=== PATIENT | female | born 1975 | race American Indian/Alaskan Native ===

== ENCOUNTER 2016-12-21 15:30 | Emergency (ER) | payer OTHER ==
[2016-12-21 16:31] LABS: Bilirubin,Urine NEG (Negative); Blood,Urine NEG (Negative); Ketones,Urine NEG (Negative); Leukocyte Esterase,Urine NEG (Negative); Mucus,Urine FEW /HPF; Nitrite,Urine NEG (Negative); Protein,Urine <15 mg/dL mg/dL (Negative); Urobilinogen,Urine < 2.0 mg/dL (<2.0); WBC,Urine < 1.0 /HPF (0.0-6.0)
--- NOTE | 2016-12-21 19:43 | Emergency Department Report ---
HPI - General Chief Complaint: Back Pain/Injury Time Seen by Provider: 12/21/16 19:28 - HPI HPI: Patient is a 41-year-old female presents to ED complaining of right-sided flank pain for the past week. Patient states she did not have any recent injuries or trauma to the back. She states pain is constant and in her right lower area does some tenderness in her abdomen she admits to urinary frequency but no dysuria, fever, nausea, vomiting or any other problems. She states she takes no medications and is allergic to Motrin ED Past Medical Hx - Past Medical History Previous Medical History?: No Additional medical history: bact. meningitis - Surgical History Past Surgical History?: Yes Additional Surgical History: laporoscopy - Social History Smoking Status: Never Smoker Substance Use Type: None - Medications Home Medications: Home Medications Medication Instructions Recorded Confirmed Last Taken Type HYDROcodone/APAP 5-325 [[place] 1 each PO Q6HR PRN #20 tablet 12/21/16 Unknown Rx 5/325] Naproxen [Naprosyn] 500 mg PO BID #30 tablet 12/21/16 Unknown Rx diphenhydrAMINE [Benadryl CAP] 25 mg PO QHS PRN #20 capsule 12/21/16 Unknown Rx ED Review of Systems ROS: Stated complaint: RT SIDE BACK PAIN X 1 WK Other details as noted in HPI Constitutional: denies: chills, fever Eyes: denies: eye pain, eye discharge, vision change ENT: denies: ear pain, throat pain Respiratory: denies: cough, shortness of breath, wheezing Cardiovascular: denies: chest pain, palpitations Endocrine: no symptoms reported Gastrointestinal: denies: abdominal pain, nausea, diarrhea Genitourinary: denies: urgency, dysuria, discharge Musculoskeletal: denies: back pain, joint swelling, arthralgia Skin: denies: rash, lesions Neurological: denies: headache, weakness, paresthesias Psychiatric: denies: anxiety, depression Hematological/Lymphatic: denies: easy bleeding, easy bruising Physical Exam - Physical Exam Vital Signs: Vital Signs 12/21/16 15:41 Temperature 98.5 F Pulse Rate 81 Respiratory 18 Rate Blood Pressure 127/84 O2 Sat by Pulse 98 Oximetry Physical Exam: GENERAL: Alert and oriented x3, no apparent distress, Normal Gait, atraumatic. HEAD: Head is normocephalic and a-traumatic. EYES: Extra ocular muscles are intact. Pupils are equal, round, and reactive to light and accommodation. LUNGS: Symetrical with respiration, No wheezing, no rales or crackles, CTAB. HEART: S1, S2 present, regular rate and rhythm without murmur, no rubs, no gallops. Non tender to palpation ABDOMEN: No organomegaly was noted,Positive bowel sounds, soft, and non- distended. . Nontender to palpation on all Quadrants, right sided CVA tenderness. EXTREMITIES/MUSCULOSKELETAL: No cyanosis, clubbing, rash, lesions or edema. Full ROM bilaterally. UE/LE Pulses 2+ bilaterally. LE and UE 5+ strength bilaterally, straight leg raise negative bilaterally NEUROLOGIC: The patient is cooperative with no focal neurologic deficits. Cranial nerves II through XII are grossly intact. Normal speech. PSYCHIATRIC: Mood is congruent with affect, denies suicidal or homicidal ideations. SKIN: Warm and dry, No lesions, No ulceration or induration present. ED Course Vital Signs 12/21/16 15:41 Temperature 98.5 F Pulse Rate 81 Respiratory 18 Rate Blood Pressure 127/84 O2 Sat by Pulse 98 Oximetry ED Medical Decision Making - Lab Data Result diagrams: 12/21/16 20:27 12/21/16 20:27 Laboratory Results - last 24 hr 12/21/16 12/21/16 12/21/16 16:04 20:27 20:27 WBC 8.7 RBC 3.77 Hgb 11.2 Hct 34.3 MCV 91 MCH 30 MCHC 33 RDW 14.3 Plt Count 224 Lymph % (Auto) 25.6 Greer % (Auto) 12.4 H Eos % (Auto) 1.3 Baso % (Auto) 0.3 Lymph # 2.2 Greer # 1.1 H Eos # 0.1 Baso # 0.0 Seg Neutrophils % 60.4 Seg Neutrophils # 5.3 Sodium 139 Potassium 4.8 Chloride 100.9 Carbon Dioxide 25 Anion Gap 18 BUN 11 Creatinine 0.6 L Estimated GFR > 60 BUN/Creatinine Ratio 18.33 Glucose 91 Calcium 9.3 Urine Color Yellow Urine Turbidity Cloudy Urine pH 6.0 Ur Specific [place] 1.020 Urine Protein <15 mg/dl Urine Glucose (UA) Neg Urine Ketones Neg Urine Blood Neg Urine Nitrite Neg Urine Bilirubin Neg Urine Urobilinogen < 2.0 Ur Leukocyte Esterase Neg Urine WBC (Auto) < 1.0 Urine RBC (Auto) 4.0 U Epithel Cells (Auto) 4.0 Urine Mucus Few Urine HCG, Qual Negative - Radiology Data Radiology results: report reviewed, image reviewed FINAL REPORT EXAM: CT ABDOMEN PELVIS WO CON HISTORY: right flank pain TECHNIQUE: Helical CT scan through the abdomen and pelvis without contrast. Images are reconstructed in the sagittal and coronal planes. PRIORS: None. FINDINGS: Solid organ and bowel evaluation is limited without intravenous contrast. Bowel evaluation is limited without oral contrast. The lung bases are clear. The liver, gallbladder, pancreas, spleen and adrenal glands appear normal. The medullary pyramids of both kidneys are mildly hyperdense consistent with medullary nephrocalcinosis, slightly greater on the right than the. Otherwise, the kidneys appear grossly normal. There is no hydronephrosis or perinephric stranding. There are numerous phleboliths in the pelvis. A right true pelvic 2 mm calcification may possibly be in the distal right ureter but the ureter is not discretely identified, series 2, image 276 and series 201 image 46. The bladder appears grossly normal. The pelvic organs appear grossly normal. The stomach appears grossly within normal limits. There are no abnormally dilated loops of bowel or acute inflammatory changes. A normal-appearing appendix is identified. The abdominal aorta has a normal diameter. The bones and subcutaneous soft tissues are unremarkable for age. IMPRESSION: 1. Findings consistent with mild medullary nephrocalcinosis slightly greater on the right than the left. 2. Question 2 mm distal right ureteral stone. This is difficult to call for certain because of the presence of numerous phleboliths and obscured distal right ureter. Transcribed By: QUENTIN Dictated By: MARCEL MURRY MD Electronically Authenticated By: MARCEL MURRY MD Signed Date/Time: 12/21/162018 - Medical Decision Making 41-year-old female presents with ED course, CBC, CMP, CT scan, urinalysis and urine test ordered Urinalysis negative, urine preg test negative. CT scan shows Discussed findings with the patient. Patient received 2 [place] tablets and Benadryl in the ED Discussed with patient to follow up with cmm inspector as referred. Discussed patient passing the stone would be difficult in the next couple of days but she is going home on pain Medication. Vital signs are normal patient is in no acute distress Critical care attestation.: If time is entered above; I have spent that time in minutes in the direct care of this critically ill patient, excluding procedure time. ED Disposition Clinical Impression: Nephrocalcinosis, Right kidney stone Disposition: TO HOME OR SELFCARE Is pt being admited?: No Does the pt Need Aspirin: No Condition: Stable Instructions: Kidney Stones (ED), How to Strain Your Urine (ED), Flank Pain (ED ) Prescriptions: diphenhydrAMINE [Benadryl CAP] 25 mg PO QHS PRN #20 capsule PRN Reason: Allergy Symptoms HYDROcodone/APAP 5-325 [[place] 5/325] 1 each PO Q6HR PRN #20 tablet PRN Reason: Pain Naproxen [Naprosyn] 500 mg PO BID #30 tablet Referrals: PRIMARY CARE, [Primary Care Provider] - 3-5 Days SANJANA JEREZ MD [Staff Physician] - 3-5 Days NATHANIEL CRAIG MD [Staff Physician] - 3-5 Days CHOLO GRAF MD [Staff Physician] - 3-5 Days Forms: Accompanied Note, Work/School Release Form Time of Disposition: 20:54
[2016-12-21] MEDS ORDERED: NORCO 5/325 PO ONE (20:03)
--- NOTE | 2016-12-21 20:25 | Cat Scan Report ---
FINAL REPORT EXAM: CT ABDOMEN PELVIS WO CON HISTORY: right flank pain TECHNIQUE: Helical CT scan through the abdomen and pelvis without contrast. Images are reconstructed in the sagittal and coronal planes. PRIORS: None. FINDINGS: Solid organ and bowel evaluation is limited without intravenous contrast. Bowel evaluation is limited without oral contrast. The lung bases are clear. The liver, gallbladder, pancreas, spleen and adrenal glands appear normal. The medullary pyramids of both kidneys are mildly hyperdense consistent with medullary nephrocalcinosis, slightly greater on the right than the. Otherwise, the kidneys appear grossly normal. There is no hydronephrosis or perinephric stranding. There are numerous phleboliths in the pelvis. A right true pelvic 2 mm calcification may possibly be in the distal right ureter but the ureter is not discretely identified, series 2, image 276 and series 201 image 46. The bladder appears grossly normal. The pelvic organs appear grossly normal. The stomach appears grossly within normal limits. There are no abnormally dilated loops of bowel or acute inflammatory changes. A normal-appearing appendix is identified. The abdominal aorta has a normal diameter. The bones and subcutaneous soft tissues are unremarkable for age. IMPRESSION: 1. Findings consistent with mild medullary nephrocalcinosis slightly greater on the right than the left. 2. Question 2 mm distal right ureteral stone. This is difficult to call for certain because of the presence of numerous phleboliths and obscured distal right ureter.
[2016-12-21 20:55] LABS: Basophils % (Auto) 0.3 % (0.0-1.8); Eosinophils % (Auto) 1.3 % (0.0-4.3); Hematocrit 34.3 % (30.3-42.9); Hemoglobin 11.2 gm/dl (10.1-14.3); Mean Corpuscular HGB Conc 33 % (30-34); Mean Corpuscular Hemoglobin 30 pg (28-32); Mean Corpuscular Volume 91 fl (79-97); Platelet Count 224 K/mm3 (140-440); Red Blood Count 3.77 M/mm3 (3.65-5.03); Red Cell Distribution Width 14.3 % (13.2-15.2); White Blood Count 8.7 K/mm3 (4.5-11.0)
[2016-12-21 21:02] LABS: Anion Gap 18 mmol/L; BUN/Creatinine Ratio 18.33; Blood Urea Nitrogen 11 mg/dL (7-17); Calcium 9.3 mg/dL (8.4-10.2); Carbon Dioxide 25 mmol/L (22-30); Chloride 100.9 mmol/L (98-107); Glucose 91 mg/dL (65-100); Potassium 4.8 mmol/L (3.6-5.0); Sodium 139 mmol/L (137-145)
[2016-12-21] MEDS ORDERED: BENADRYL PO ONE (21:27)
[2016-12-21 21:41] VITALS: BP 143/88
== END 2016-12-21 21:38 | disposition home or self-care (01) ==
LOC: ED 15:30
DX: E83.59 Other disorders of calcium metabolism (principal); N29 Other disorders of kidney and ureter in diseases classified elsewhere; Z88.6 Allergy status to analgesic agent
CPT/HCPCS: 36415; 74176; 80048; 81001; 81025; 85025